=== PATIENT | female | born 1990 | race Caucasian/White ===

== ENCOUNTER 2020-11-01 11:54 | Outpatient (CLI) | payer OTHER, SELFPAY ==
[2020-11-01 12:14] LABS: Hematocrit 34.4 % (37.0-47.0); Hemoglobin 11.1 g/dL (12.0-15.0); Mean Corpuscular HGB Conc 32.3 g/dl (32-36); Mean Corpuscular Hemoglobin 28.5 pg (26-34); Mean Corpuscular Volume 88.4 fl (80-100); Mean Platelet Volume 11.2 fl (7.4-10.4); Platelet Count Result 189 k/mm3 (150-375); Red Blood Count 3.89 M/mm3 (4.2-5.4); Red Cell Distribution Width 13.8 % (11.5-14.5); White Blood Count 10.1 K/mm3 (4.5-10.0)
[2020-11-02 11:52] LABS: Rapid Plasma Reagin Non-Reactive (NonReactive)
== END 2020-11-01 11:55 | disposition home or self-care (01) ==
PROVIDERS: PCP Nurse Practitioner Family; Visit Provider Obstetrics & Gynecology
DX: Z01.818 Encounter for other preprocedural examination (principal)
CPT/HCPCS: 36415; 85027; 86592; 86850; 86900; 86901

== ENCOUNTER 2020-11-02 06:58 | Inpatient (IN) | payer OTHER, SELFPAY ==
--- NOTE | 2020-10-20 15:03 | PC.NURSE ---
VERIFIED WITH OR SCHEDULE AND PATIENT--C/S WITH TUBAL LIGATION ON 11/09/20 AT 1200 PATIENT GIVEN REQUISITION FOR LAB DRAW ON 11/08/20
[2020-11-02] VITALS (64 sets, daily range): BP systolic 91–129; BP diastolic 45–74; PULSE 55–138; RESP 12–16; TEMP 36.2–36.8; O2SAT 96–100; BMI 40.9
[2020-11-02] MEDS: LACTATED RINGERS 1,000 ML 125 ML IV CONT ×2 (07:57→08:31)
--- NOTE | 2020-11-02 08:00 | WPDANESEPPF ---
Anes - Initial Pre Proc Eval Procedure: Operation Date: 11/02/20 09:00 Proposed Procedures p Repeat Section with Bilateral Tubal Ligation - Jasen Patel MD Date/Time: 11/02/20 08:00 Surgeon: Jasen Patel MD Pre Op Diagnosis: Repeat c- section,desires sterilization Patient Data Age: 30 Gender: F Height: 1.78 m Weight: 129.5 kg Last Vital Signs Pulse 75 11/02/20 07:31 BP 124/74 11/02/20 07:31 Allergies Allergy/AdvReac Type Severity Reaction Status Date / Time No Known Allergies Allergy Verified 10/20/20 14:49 Home Medications Medication Instructions Recorded Confirmed Type prenat.vits,azucena,ruz-jveu-qilbd 1 tablet PO DAILY 10/20/20 10/20/20 History [ #2] Patient hx anesthesia problems: none Family hx anesthesia problems: none [facility] [place] Past Medical History Medical History (Updated 11/02/20 @ 08:00 by Zack Rhodes DO) Anemia Family History Family History (Updated 10/20/20 @ 14:51 by Elizabeth Marquez RN) Sibling Hypothyroidism Father A-fib Mother Hypertension Social History Social History Substance use: never Spiritual care concerns: No Anes - Eval Final PreProcedure Day of Procedure 11/02/20 08:00 Patient weight: morbidly obese Heart: regular rate and rhythm Lungs: clear to auscultation and normal air movement Airway: Mallampati scale class II Neurological: alert and oriented Last oral intake: >/= 8 hours ASA classification: III Emergent: no Anesthetic plan: proceed Anesthesia type and monitoring: regional spinal and standard monitoring Informed Consent: The patient's anesthetic plan and its attendant risks and benefits were discussed with the patient/family/POA. Questions were solicited and answers provided to the satisfaction of the patient/family/POA.
--- NOTE | 2020-11-02 09:00 | WPDHPUPDATE1 ---
History and Physical Update Update Date/Time: 11/02/20 09:00 History and Physical has been reviewed, including an updated exam of the patient. There are NO changes in the patient's condition. Risks, benefits, and alternatives have been discussed and questions answered. Patient agrees to proceed with procedure.
--- NOTE | 2020-11-02 09:01 | PM.IMHP ---
H&P: HPI History of Present Illness Date/Time: 11/02/20 09:01 This patient is a 30 y/o mutiparous female at 39 weeks gestation with a previous delivery and unwanted fertility. She has no complaints. She denies contractions, LOF, or vaginal bleeding. She denies YEPEZ, BV, EP. She denies N/V/F/C. She understands that injuries may occur and that injuries may result in hospitalizaton, more surgery, and severe illness. She understands there is a risk for hemorrhage and infection. Chief Complaint: term Review of Systems Constitutional: Constitutional: Reports no additional constitutional complaints, Denies fatigue, Denies headache(s), Denies lethargy and Denies weakness Eyes: Eyes: Reports no additional eye complaints, Denies blurry vision and Denies photophobia ENT: Reports as per HPI, Denies headache(s) and Denies neck pain Cardiovascular: Cardiovascular: Denies chest pain, Denies diaphoresis, Denies leg edema, Denies palpitations and Denies dyspnea Respiratory: Respiratory: Denies hemoptysis, Denies dyspnea and Denies wheezing Gastrointestinal: Gastrointestinal: Denies abdominal pain, Denies melena, Denies bloating, Denies hematochezia, Denies nausea and Denies vomiting Genitourinary: Genitourinary: Reports no additional female genitourinary complaints Musculoskeletal: Musculoskeletal: Denies joint swelling, Denies neck pain, Denies numbness and Denies stiffness Neurologic: Denies Abnormal speech present, Denies confusion, Denies headache(s), Denies numbness and Denies weakness Psychiatric: Psychiatric: Denies anxiety, Denies confusion, Denies depression, Denies homicidal ideation and Denies suicidal ideation Endocrine: Endocrine: Denies fatigue and Denies palpitations Allergic/Immunologic: Allergic/Immunologic: Denies wheezing PMFSH Past Medical History Medical History (Updated 11/02/20 @ 09:09 by Jasen Patel MD) Anemia Family History Family History (Updated 10/20/20 @ 14:51 by Elizabeth Marquez RN) Sibling Hypothyroidism Father A-fib Mother Hypertension Social History Social History Substance use: never Spiritual care concerns: No Meds Home Medications and Allergies Home Medications Medication Instructions Recorded Confirmed Type prenat.vits,azucena,cje-tzhq-kbfym 1 tablet PO DAILY 10/20/20 10/20/20 History [ #2] Allergies Allergy/AdvReac Type Severity Reaction Status Date / Time No Known Allergies Allergy Verified 10/20/20 14:49 Vital Signs Vital Signs - 24 hr 11/02/20 07:31 11/02/20 08:01 11/02/20 08:16 Pulse Rate 75 71 68 Blood Pressure 124/74 114/61 118/70 Exam Const: General: healthy appearing, comfortable and no acute distress; No confusion Orientation/consciousness: No confusion Eyes: Direct Ophthalmoscopy: No photophobia Resp: Auscultation: clear to auscultation bilaterally, no rales, no rhonchi and no wheezes Cardio: Rate: regular rate Heart sounds: no click, no murmurs and no rubs GI: Inspection: non-distended GI Palp: No abdominal tenderness Auscultation: normal bowel sounds Neuro: General: No confusion Speech: No Abnormal speech present Extrem: General: normal to inspection, no pedal edema and no calf tenderness Assessment and Plan Assessment and plan (1) Previous section: Code(s): Z98.891 - History of uterine scar from previous surgery Status: Acute (2) Encounter for female sterilization procedure: Code(s): Z30.2 - Encounter for sterilization Status: Acute (3) Term : Code(s): Z34.90 - Encounter for supervision of normal , unspecified, unspecified trimester Status: Acute Assessment and Plan: This patient is a 30 year old female, multip. at 39 weeks, previous , unwanted fertility. To proceed with repeat and bilateral tubal ligation.. She understands the risk, benefits, and alternatives. She has completed the informed
--- NOTE | 2020-11-02 09:27 | LDADM ---
This patient, Polly Nolan, was admitted to Labor/Delivery/Recovery 118 on 11/02/20 at 06:58. Plans for section, pain management and were discussed with patient. Patient/family oriented to hospital policies and general routines including ID bracelet, bed and alarms, visiting hours, pain management, procedures, bathroom and other care routines, personal items, smoking policy, room service/diet and guest tray routines, security routines, and visiting hours. Patient/Family are encouraged to report perceived risks to care and to ask questions if they do not understand what they are told or what they should do. See OBIX for further documentation.
[2020-11-02] MEDS: KETOROLAC 30 MG/ML VIAL (*BKC) IV PUSH ×3 (10:30→23:37)
--- NOTE | 2020-11-02 10:40 | W.PM.PROC2 ---
Procedure Note - Detailed Date of Procedure 11/02/20 Pre-op Diagnosis Repeat c- section,desires sterilization Post-op Diagnosis same Procedure Performed Low-transverse section Surgeon Jasen Patel MD Anesthesia spinal Indications term gestation, previous , unwanted fertility Findings Normal gestational maternal anatomy, average size infant, normal Apgars. Description of Procedure The patient was taken the operating room. She was prepped and draped in dorsal supine position with a leftward tilt. This was done after spinal anesthetic was applied. A low-transverse skin incision was made and carried down till of the fascia with the knife. The fascial incision was made with the knife. The fascial incision was extended laterally with Paul scissors. The fascia was tented upward superiorly and inferiorly the rectus muscles were dissected off bluntly. The rectus muscles were the midline. The preperitoneal fat and peritoneum were dissected open bluntly at the superior aspect of the rectus muscles. The peritoneal incision was extended superior and inferior with good position of bladder. The uterine incision was made with a scalpel down to the level of the amniotic cavity. The amniotic cavity was entered bluntly. The was delivered. The cord was clamped and cut and the infant was handed off to waiting pediatric staff. Cord bloods were obtained. The placenta was removed manually. The uterus was exteriorized. The uterus was cleared of all clots, debris and membranes. The uterus was closed in 0 Vicryl running lock fashion. An imbricating over a was placed along the incision line as well. the right fallopian tube was grasped in the ampullary region with a Sylvie. The mesosalpinx was cauterized and a window was created in the same area adjacent to the tube. The proximal distal ends of the isolated were ligated with 0 Vicryl. The ligated segment was transected and. The cut ends of the tube were cauterized. The contralateral tube was ligated in the same fashion The uterus was returned to the abdomen. The gutters were cleared of all clots and debris. The fascia was closed with 0 Vicryl running fashion. The subcutaneous tissue was irrigated pinpoint bleeders were cauterized. The skin was closed with subcuticular absorbable jaylan. The skin incision line was covered with glue. The patient tolerated the procedure well. She has taken recovery room in stable condition. Sponge lap and needle counts were correct x2. Estimated Blood Loss 550 Complications No immediate complications Condition stable Disposition PACU
[2020-11-02] MEDS: OXYTOCIN 30 UNITS/NS 500 ML 30 UNITS/500 ML BAG 125 UNITS IV CONT (11:41)
--- NOTE | 2020-11-02 12:55 | PC.NURSE ---
Patient transferred to post room #287 via stretcher. Support person present. Oriented to unit, room, information board, rooming in, admission packet and security measures. Patient verbalizes understanding.
[2020-11-02] MEDS: DEXTROSE 5%/0.45% SOD CHL 1,000 ML 125 ML IV CONT (16:04)
[2020-11-02] MEDS: HYDROcodone/acetaminophen (*CRX) 5-325 MG TABLET 1 TAB PO (18:54)
[2020-11-03 05:00] VITALS: BP 97/54; PULSE 79; RESP 16; TEMP 36.8; O2SAT 96
[2020-11-03] MEDS: HYDROcodone/acetaminophen (*CRX) 10-325 MG TABLET 1 TAB PO ×4 (05:18→20:18)
[2020-11-03 05:43] LABS: Basophils Percent Auto 0.2 % (0.2-1.2); Eosinophils Absolute Auto 0.1 K/mm3 (0-0.3); Eosinophils Percent Auto 0.5 % (0-4.4); Hematocrit 29.2 % (37.0-47.0); Hemoglobin 9.3 g/dL (12.0-15.0); Immature Granulocyte Absolute 0.09 K/mm3 (0.00-0.031); Immature Granulocyte Percent A 0.7 % (0-0.5); Lymphocytes Absolute Auto 1.45 K/mm3 (0.9-3.2); Mean Corpuscular HGB Conc 31.8 g/dl (32-36); Mean Corpuscular Hemoglobin 28.6 pg (26-34); Mean Corpuscular Volume 89.8 fl (80-100); Mean Platelet Volume 11.4 fl (7.4-10.4); Monocytes Percent Auto 7.6 % (2.6-8.5); Neutrophils Absolute Auto 10.5 K/mm3 (1.3-6.7); Platelet Count Result 177 k/mm3 (150-375); Red Blood Count 3.25 M/mm3 (4.2-5.4); Red Cell Distribution Width 13.7 % (11.5-14.5); White Blood Count 13.2 K/mm3 (4.5-10.0)
--- NOTE | 2020-11-03 07:25 | WPDANLDPN2 ---
Anes-Prog Note L&D Date/Time: 11/03/20 07:25 Comfortable throughout: section Neuraxial method: spinal Epidural/Spinal procedure site: clean & non-tender Neuro status: Neuro function grossly intact. Cardiovascular status: normal Respiratory status: normal Airway patency: baseline Mental status: baseline Post-Op hydration status: normal Vital Signs: Last Vital Signs Temp 36.8 C 11/03/20 05:00 Pulse 79 11/03/20 05:00 Resp 16 11/03/20 05:00 BP 97/54 L 11/03/20 05:00 Pulse Ox 96 11/03/20 05:00 Pain score (VAS): 05/09 I/O: Intake & Output 11/02/20 11/02/20 11/03/20 15:59 23:59 07:59 Intake Total 2100 1420 600 Output Total 898 1700 950 Balance 1202 280 -536 Post-procedural complaints: none Patient feedback: Patient satisfied with anesthetic care.
--- NOTE | 2020-11-03 07:26 | WPDANLDNPN2 ---
Anes-Prog Note L&D-Neuraxial Date/Time: 11/03/20 07:26 Neuraxial medications: intrathecal PF morphine Opiod-related complaints: none Patient feedback: Patient satisfied with post-operative pain management.
--- NOTE | 2020-11-03 08:17 | P.PNOB_ITS ---
OB - PN: Subj Subjective Date/time seen: 11/03/20 08:17 Patient comments: no complaints, pain well controlled, tolerating diet and flatus present OB - PN: Obj Data Labs CBC & Chem 7: 11/03/20 05:16 Labs: Laboratory Results - last 24 hr 11/03/20 05:16 WBC 13.2 H RBC 3.25 L Hgb 9.3 L Hct 29.2 L MCV 89.8 MCH 28.6 MCHC 31.8 L RDW 13.7 Plt Count 177 MPV 11.4 H Immature Gran % (Auto) 0.7 H Neut % (Auto) 80.0 H Lymph % (Auto) 11.0 L [place] % (Auto) 7.6 Eos % (Auto) 0.5 Baso % (Auto) 0.2 Lymph # (Auto) 1.45 [place] # (Auto) 1.0 H Eos # (Auto) 0.1 Baso # (Auto) 0.0 Abs Immat Gran (auto) 0.09 H Absolute Neuts (auto) 10.5 H Absolute Nucleated RBC 0.0 Nucleated RBC % 0.0 OB - PN A/P Plan day: 1 Comments: Post Op LTCS - no problems, routine recovery Time Spent With Patient Time: Total time spent is greater than 50% in coordination of care (as documented) at patient's floor/unit and/or counseling patient: Exam Const: General: cooperative, healthy appearing, comfortable and no acute distress Resp: Auscultation: no crackles, no rales, no rhonchi and no wheezes Cardio: Rhythm: regular rhythm Heart sounds: no click and no murmurs GI: Inspection: non-distended Auscultation: normal bowel sounds Extrem: General: normal to inspection, no pedal edema and no calf tenderness
[2020-11-03 08:30] VITALS: PULSE 78; RESP 16; O2SAT 98
[2020-11-03 08:55] VITALS: BP 110/62; PULSE 78; RESP 16; TEMP 36.6; O2SAT 98
[2020-11-03] MEDS: IBUPROFEN 600 MG TABLET PO ×2 (10:13→16:14)
[2020-11-03] MEDS: DOCUSATE SODIUM 100 MG CAPSULE PO ×2 (10:14→17:08)
[2020-11-03] MEDS: POLYSACCHARIDE IRON COMPLEX 150 MG CAPSULE PO ×2 (10:14→17:08)
[2020-11-03 20:05] VITALS: BP 125/65; PULSE 94; RESP 15; TEMP 36.6; O2SAT 98
[2020-11-04] MEDS: IBUPROFEN 600 MG TABLET PO ×2 (05:00→14:35)
[2020-11-04] MEDS: HYDROcodone/acetaminophen (*CRX) 10-325 MG TABLET 1 TAB PO (05:01)
--- NOTE | 2020-11-04 07:50 | PM.OBPNVD ---
OB - PN: Subj Subjective Date/time seen: 11/04/20 07:50 Patient comments: no complaints, pain well controlled, tolerating diet and flatus present baby status: doing well OB - PN: Obj Data Labs CBC & Chem 7: 11/03/20 05:16 OB - PN A/P Plan day: 2 Plan: routine care and discharge home (Follow up in 1 week) Time Spent With Patient Time: Total time spent is greater than 50% in coordination of care (as documented) at patient's floor/unit and/or counseling patient: Time with patient: less than 15 minutes Review of Systems Review of Systems: All systems reviewed & are unremarkable except as noted in HPI and below Exam Narrative: Exam Narrative: Fundus firm. Vaginal flow controlled. Incision dry and intact. Negative homans. No redness, warmth, or pain of lower ext. Const: General: comfortable Chest: Breast/axilla inspection: normal inspection of the breasts Resp: Effort & Inspection: normal respiratory effort Auscultation: clear to auscultation bilaterally Cardio: Rate: regular rate GI: GI Palp: Yes Soft to palpation Psych: Appearance: grossly normal Affect: normal affect Attitude: cooperative Thought content: Yes Normal thought content present Judgement: Good judgement present (Psych)
[2020-11-04] MEDS: DOCUSATE SODIUM 100 MG CAPSULE PO (08:07)
[2020-11-04] MEDS: POLYSACCHARIDE IRON COMPLEX 150 MG CAPSULE PO (08:07)
[2020-11-04] MEDS: TETANUS,DIPHTHERIA,AC PERTUSSIS ADULT (0.5 ML) BOOSTRIX IM (08:08)
[2020-11-04 08:50] VITALS: BP 122/71; PULSE 84; RESP 16; TEMP 36.9; O2SAT 98
[2020-11-04] MEDS: HYDROcodone/acetaminophen (*CRX) 5-325 MG TABLET 1 TAB PO ×2 (08:51→14:35)
--- NOTE | 2020-11-04 14:07 | PC.NURSE ---
Patient viewed the discharge video Mother & Baby Care, The First Two Weeks . Patient was given the opportunity and encouraged to ask questions. Patient verbalized understanding of information shared and has been given the mother/baby guide for home reference.
[2020-11-05 07:49] VITALS: BP 113/66; PULSE 90; RESP 20; TEMP 36.6; O2SAT 98
--- NOTE | 2020-11-25 08:11 | PM.OBDSVD ---
DS: Admitting Diagnosis Admitting Diagnosis with tubal ligation OB - DS: Summary OB Procedures : None OB Procedures Intrapartum: and Tubal ligation OB Procedures: : P.P. tubal ligation Peripartum Data Procedures: Procedures Operation Date: 11/02/20 09:00 Actual Procedure Side Surgeon p Repeat Section with Bilateral Tubal Ligation Not Applicable Jasen Patel MD Time Spent with Patient Time attestation: Total time spent providing and/or coordinating discharge services: DS: Data Data Completed and Pending Completed studies during hospitalization: Pending at discharge 11/02/20 10:21 Surgical [PTH] Routine Discharge Plan Discharge Attending physician on discharge: Jasen Patel Consulting providers: Zack Rhodes Discharging Clinician: Jasen Patel Patient Disposition: Home, Self-Care Activity: no driving and pelvic rest Diet: as tolerated Discharge Instructions: Education: Mom and Baby Guide Given to: Mother Follow-Up: Call your delivering provider's office for an appointment to be seen in: call for appointment Mom and baby should come to the [facility] for the follow-up appointment. Appointment Date/Time: November 05, 2020 at 8:00 am What to expect at your follow-up visit: Physical Assessment Call [phone] if you are unable to keep your appointment time. BREAST CARE: * Wear a snug supportive bra. * For engorgement discomfort: * Wear loose clothing Bottle Feeding: * May apply ice packs ABDOMINAL INCISION: (if applicable) * Allow incision to air dry * Do NOT use lotions for powders on your incision * When showering, allow soap and water to run over the incision, but do not wash incision EPISIOTOMY/PERINEAL CARE: * Until bleeding stops, use your cedric bottle after urinating * Change your pad frequently throughout the day * No tub baths until seen by your physician - You may shower ACTIVITY: * Rest as much as possible. * Do not exercise or lift anything heavier than your baby (such as laundry or other children.) * Avoid stairs or driving as much as possible. * Do not put anything into the vagina. No douching, tampons, or sexual activity until seen by physician. NOTIFY PHYSICIAN IF YOU HAVE ANY QUESTIONS OR IF ANY OF THE FOLLOWING SYMPTOMS OCCUR: * If your incision becomes red, swollen, or more painful than what you have experienced in the hospital. * If your vaginal bleeding becomes foul smelling. * If your vaginal bleeding becomes more heavy than a period or if your bleeding changes from pink to bright red. However, you may pass an occasional walnut-sized clot once or twice for the first week . * If you experience a sharp, shooting pain in you calves. * If you discover a hard, reddened area on your breast or if you experience flu-like symptoms. DIET: * Eat regular, well-balanced meals. * Drink plenty of fluids daily. If , drink to thirst. Stand Alone Forms: General Discharge Information Follow-up/Referrals: Jasen Patel MD [Physician] - Discharge Medications: New ibuprofen 600 mg Tablet 600 mg PO Q6H PRN (Reason: Cramping) Qty: 20 RF: 0 hydrocodone-acetaminophen 5-325 mg tablet 1 tablet PO Q6H PRN (Reason: pain) Qty: 20 RF: 0 Continued prenat.vits,azucena,ele-onup-yqtnu Tablet 1 tablet PO DAILY RF: 0 ferrous sulfate [Iron (ferrous sulfate)] 325 mg (65 mg iron) Tablet 325 mg PO DAILY RF: 0 Date of admission: 11/02/20 06:58 Primary Care Provider: Christian,Erin Alves Admitting Provider: Jasen Patel Attending physician on admission: Jasen Patel Condition: Stable
== END 2020-11-04 15:00 | disposition home or self-care (01) | DRG 785 ==
LOC: ANHLDR 07:01 → ANHOB2 13:00
PROVIDERS: Admitting Provider Obstetrics & Gynecology; PCP Nurse Practitioner Family; Visit Provider Obstetrics & Gynecology
PROC: 10D00Z1 Extraction of Products of Conception, Low, Open Approach (ICD-10-PCS; CPT 59514; principal; 2020-11-02 09:00)
DX: O34.211 Maternal care for low transverse scar from previous cesarean delivery (principal); Z37.0 Single live birth; Z3A.39 39 weeks gestation of pregnancy; Z30.2 Encounter for sterilization; O99.02 Anemia complicating childbirth; D64.9 Anemia, unspecified; O99.214 Obesity complicating childbirth; E66.01 Morbid (severe) obesity due to excess calories
CPT/HCPCS: 36415; 85025; 85027; 86592; 86850; 86900; 86901; 88302; 90715; A9270; J0131; J1885; J2274; J2370; J2405; J2590; J7120

== ENCOUNTER 2022-03-14 08:24 | Emergency (ER) | payer OTHER, SELFPAY ==
--- NOTE | 2022-03-14 08:28 | ED.URI ---
HPI - URI/Sore Throat General Chief Complaint: Upper Respiratory Infection Stated Complaint: FEVER/SORE THROAT Time Seen by Provider: 03/14/22 08:28 Source: patient and RN notes reviewed History of Present Illness HPI Narrative: Patient is a 32-year-old female who presents to the Urgent Care with complaints of fever, sore throat and congestion since Sunday. Patient states that she has been taking DayQuil and NyQuil for her symptoms. Denies any nausea or vomiting. No other acute complaints. No acute distress noted. Patient aware of the plan of care. Some parts of this dictation were generated by voice recognition software and may contain typographical and/or grammatical inaccuracies. Related Data Allergies Allergy/AdvReac Type Severity Reaction Status Date / Time No Known Allergies Allergy Verified 10/20/20 14:49 Review of Systems Review of Systems: CONSTITUTIONAL: Reports of fever fatigue EYES: Denies visual changes, redness, or discharge. ENT: Reports of nasal congestion, sore throat CARDIOVASCULAR: Denies chest pain, palpitations, or edema. RESPIRATORY: Denies cough or dyspnea. GASTROINTESTINAL: Denies abdominal pain, nausea, vomiting, or diarrhea. GENITOURINARY: Denies dysuria or hematuria. SKIN: Denies rash or itching. MUSCULOSKELETAL: Denies back pain, joint pain, or myalgia. NEUROLOGIC: Denies headache, numbness, or weakness. All other systems reviewed are negative, except as documented in HPI. [facility] Past Medical History Medical History (Updated 03/14/22 @ 09:08 by GITA Estevez) Anemia Family History Family History (Updated 10/20/20 @ 14:51 by Elizabeth Marquez RN) Sibling Hypothyroidism Father A-fib Mother Hypertension Social History Social History Smoking status: Former smoker Smoking end date: 10/28/17 Substance use: never Spiritual care concerns: No Comments At the time of my signature, I reviewed and agree with the nursing past medical, surgical, social, and family history. There is no relevant family history pertinent to the patient complaint. Exam Narrative: GENERAL: This is a well-nourished, well-developed patient, in no apparent distress. HEAD: normocephalic, atraumatic. EYES: PERRL. Sclera clear/white. Vision is grossly intact. EARS: External ears normal, auditory canals clear and without drainage, TMs normal without perforation. Hearing grossly intact. NOSE: External nose normal with no obvious nasal discharge. Bilateral erythema nares with inflamed tuberosities and clear to yellow rhinorrhea THROAT: Mucous membranes moist. Moderate erythema to the posterior pharynx with moderate bilateral tonsillar edema with exudate and moderate postnasal drainage. Hoarse voice NECK: Neck supple, mild bilateral nontender submandibular lymphadenopathy CARDIOVASCULAR: Regular rate and rhythm without murmurs, gallops, or rubs. RESPIRATORY: Clear to auscultation. Breath sounds equal bilaterally. No wheezes, rales, or rhonchi. SKIN: warm, intact with no suspicious lesions or rash, good texture and turgor. NEURO: awake, alert, and oriented to person, place and time. There were no obvious focal neurologic abnormalities. EXTREMITIES: No clubbing, cyanosis, or edema. Course Course Level of Care: Express Care Visit Vital Signs Vital signs: Vital Signs Temperature 99.4 F 03/14/22 08:32 Pulse Rate 98 03/14/22 08:32 Respiratory Rate 16 03/14/22 08:32 Blood Pressure 119/78 03/14/22 08:32 Pulse Oximetry 98 03/14/22 08:32 Oxygen Delivery Room Air 03/14/22 08:32 Temperature 99.4 F 03/14/22 08:32 Pulse Rate 98 03/14/22 08:32 Respiratory Rate 16 03/14/22 08:32 Blood Pressure 119/78 03/14/22 08:32 Pulse Oximetry 98 03/14/22 08:32 Oxygen Delivery Room Air 03/14/22 08:32 Reviewed MDM - URI/Sore Throat MDM Narrative Medical decision making narrative: Reviewed lab results with the patient. She is aware that flu and strep swab was negati
[2022-03-14 08:32] VITALS: BP 119/78; PULSE 98; RESP 16; TEMP 37.4; O2SAT 98
== END 2022-03-14 09:21 | disposition home or self-care (01) ==
PROVIDERS: Emergency Provider Nurse Practitioner Family
DX: J03.90 Acute tonsillitis, unspecified (principal); Z87.891 Personal history of nicotine dependence
CPT/HCPCS: 87081; 87804; 87880; 99213; G0463

== ENCOUNTER 2023-01-18 01:25 | Day surgery (SDC) | payer OTHER, SELFPAY ==
[2023-01-11 10:45] VITALS: BMI 38.7
--- NOTE | 2023-01-11 10:49 | PC.NURSE ---
Report to the Outpatient Waiting Room, entrance under the green pavilion located off [facility], at time 1000 on date 01/18/23. Planned Procedure Time: 1200. Time changes happen often and if your time is changed the preop area will call you the afternoon before. - You and your visitor will be asked to self-screen and do not enter if you have any COVID symptoms. - A mask is optional within the hospital at this time. Patients may ONLY have clear liquids WEDNESDAY 01/17. - No food OR DRINK from midnight until time of surgery Take the following medications with a SIP of water the morning of surgery: BUSPIRONE DO NOT STOP ANY OF YOUR OTHER PRESCRIPTION MEDICATIONS PRIOR TO SURGERY ?EXCEPT THE FOLLOWING Medications to discontinue per physician: N/A Date to take last dose: N/A PER DR. BARKER - FLEETS ENEMA NIGHT BEFORE AND MORNING OF SURGERY, DULCOLAX 5MG NIGHT BEFORE SURGERY Please no make-up, nail guatemalan, hairspray, perfume, deodorant, or body powder the day of surgery. No jewelry (including any body piercings) or valuables the day of surgery, leave them at home. Please take a shower or bath the night before, or the morning of, surgery with an antibacterial soap. Wear comfortable, loose fitting clothing. - Jewelry must be removed prior to entering the operating room. Rings and piercings that are not removed may be cut off. - The hospital will not accept responsibility for valuables. - Please leave all valuables, including medications, at home the day of surgery. If you are going home after surgery, a licensed tow motor driver must drive you home. - NO public transportation without another adult if you receive anesthesia. - We recommend that an adult stay with you for 24 hours following discharge. - We also recommend that you do not drive, make important decision, drink alcoholic beverages, or take any drugs that were not prescribed by your health care provider for at least 24 hours after your discharge time. Follow any additional instructions given to you from your surgeon. If you or anyone in your household have experienced Covid symptoms in the past week, please notify your surgeon or the nurse liaison at the phone number below for possible testing. Telephone instructions given to PT - STEFANIE FELIX and asked if any additional questions and then verbalized understanding. Patient advised to call surgeon office or pre surgery nurse liaison [phone] if any additional questions.
[2023-01-18] VITALS (7 sets, daily range): BP systolic 103–125; BP diastolic 62–76; PULSE 72–113; RESP 12–18; TEMP 36.2–36.6; O2SAT 99–100
[2023-01-18] MEDS: LACTATED RINGERS 1,000 ML 30 ML IV CONT ×2 (09:45→12:45)
--- NOTE | 2023-01-18 10:45 | P.PNAN_ITS ---
Anes - Initial Pre Proc Eval Procedure: Operation Date: 01/18/23 12:00 Proposed Procedures p Lateral Internal Sphincterotomy - Cody Feldman MD Date/Time: 01/18/23 10:45 Surgeon: Cody Feldman MD Pre Op Diagnosis: chronic anal fissure Patient Data Age: 32 Gender: F Height: 1.78 m Weight: 125.6 kg Last Vital Signs Temp 36.2 C L 01/18/23 09:19 Pulse 78 01/18/23 09:19 Resp 18 01/18/23 09:19 BP 122/71 01/18/23 09:19 Pulse Ox 99 01/18/23 09:19 O2 Del Method Room Air 01/18/23 09:19 Allergies Allergy/AdvReac Type Severity Reaction Status Date / Time No Known Allergies Allergy Verified 01/11/23 10:44 Home Medications Medication Instructions Recorded Confirmed Type famotidine 20 mg tablet 20 mg PO DAILY 04/11/22 01/11/23 History buspirone 5 mg tablet 5 mg PO BID #60 tabs 09/08/22 01/11/23 Rx Patient hx anesthesia problems: none Family hx anesthesia problems: none Results Review: All pre-operative results and documents have been reviewed as part of the pre- operative evaluation. [facility] Past Medical History Medical History Anemia Anxiety Depression GERD (gastroesophageal reflux disease) Surgical History Surgical History Previous section x 2 Family History Family History Sibling Hypothyroidism Father A-fib Mother Hypertension Grandparent Acute myocardial infarction, Onset Age: 50 Social History Social History Smoking packs per day: 0.5 Smoking cigarettes per day: 10.0 Years smoked: 10 Smoking pack-years: 5.00 Smoking status: Former smoker Tobacco type: cigarettes Smoking end date: 04/30/16 Alcohol intake: never Substance use: never Substance use type: does not use Living arrangements: with family Additional living arrangements comments: BOYFRIEND & CHILDREN Occupation/Education: occupation Gender identity (if verbalized by the patient): Female Sexual Orientation (if Verbalized by the Patient): Straight or Heterosexual Spiritual care concerns: No Anes - Eval Final PreProcedure Day of Procedure 01/18/23 10:45 Patient weight: obese Heart: regular rate and rhythm Lungs: clear to auscultation Airway: Mallampati scale class II Neurological: alert and oriented Last oral intake: >/= 8 hours ASA classification: III Emergent: no Anesthetic plan: proceed Anesthesia type and monitoring: general ETT and standard monitoring Results Review: All pre-operative results and documents have been reviewed as part of the pre- operative evaluation. Informed Consent: The patient's anesthetic plan and its attendant risks and benefits were discussed with the patient/family/POA. Questions were solicited and answers provided to the satisfaction of the patient/family/POA.
[2023-01-18] MEDS: KETOROLAC 15 MG/ML VIAL (*BKC) IV PUSH (11:25)
[2023-01-18] MEDS: ACETAMINOPHEN 500 MG TABLET 1000 MG PO (11:25)
--- NOTE | 2023-01-18 11:43 | WPDHPUPDATE1 ---
History and Physical Update Update Date/Time: 01/18/23 11:43 History and Physical has been reviewed, including an updated exam of the patient. There are NO changes in the patient's condition. Risks, benefits, and alternatives have been discussed and questions answered. Patient agrees to proceed with procedure.
[2023-01-18] MEDS: ceFAZolin 3 GM/D5W 100 ML 100 ML IVPB (11:53)
[2023-01-18] MEDS: BUPIVACAINE/EPINEPHRINE 0.5% 30 ML VIAL 60 ML INFILTRATE (12:30)
--- NOTE | 2023-01-18 12:57 | W.PM.PROC2 ---
Procedure Note - Detailed Date of Procedure 01/18/23 Pre-op Diagnosis chronic anal fissure Post-op Diagnosis Other (Rectal inflammation, internal and external hemorrhoids) Procedure Performed Excision single complex right posterior internal and external hemorrhoid, rectal mucosal biopsy left lateral position. Surgeon Cody Feldman MD Applications Processor Debar Harry [facility] Anesthesia General and Local (0.5% Marcaine with epinephrine) Indications Patient has been having chronic persistent rectal pain ever since childbirth 2 years ago. The pain is worse with bowel movement. She does have prominent circumferential hemorrhoids but seemed to be most tender in the posterior midline although I could not definitely see a fissure. Her sphincter tone in the office visit did appear to be increased. She is taken to surgery now for sphincterotomy with diagnosis of anal fissure. Findings There was no anal fissure. Anal sphincter tone did not seem to be abnormally high or spastic. She did have reddened and inflamed distal rectal or anal canal mucosa including internal hemorrhoids and other areas of the distal rectal mucosa. She has multiple internal and external hemorrhoids. Description of Procedure Patient was taken to surgery and induced into general anesthesia. She was then turned into prone del-knife position. Buttocks were taped apart. Prep and drape was carried out. Prior to administering any local anesthetic, I used Jairo-Dontrell anoscope then carefully examine the anal canal and distal rectum. Findings were as above. There was evidence of chronic inflammation but no anal fissure and anal sphincter tone seemed essentially normal. For that reason, I excised a right posterior quadrant internal and external hemorrhoid that seemed particularly inflamed at the internal hemorrhoid. There was also some severely inflamed mucosa just adjacent to this original excision and I also excised that and sent it with the hemorrhoid specimen. The wound was then closed with running locking 3-0 chromic suture. I then found an area in the left lateral position that appeared to have very inflamed distal rectal mucosa. I excised this mucosa and sent it as a separate specimen. The area was made hemostatic with the cautery. We dressed the rectum with Xeroform gauze fluffs and tape. Patient was returned to a supine position, awakened, and extubated. She was taken to recovery in good condition. Sponge and needle counts were correct x2. Estimated Blood Loss -5 Drains No Packing No Pathology Yes (Right posterior complex internal and external hemorrhoids with additional internal hemorrhoid tissue, left lateral distal mucosal biopsy.) Complications No immediate complications Condition Stable Disposition PACU [facility] Billing Surgery - Charge Forward: Surgery Billing (Excision single complex internal and external hemorrhoids, distal rectal mucosal biopsy)
== END 2023-01-18 14:52 | disposition home or self-care (01) ==
PROVIDERS: PCP Family Medicine; Visit Provider Surgery
PROC: (CPT 46255; principal; 2023-01-18 12:00)
DX: K64.8 Other hemorrhoids (principal); K64.4 Residual hemorrhoidal skin tags; K62.89 Other specified diseases of anus and rectum; K21.9 Gastro-esophageal reflux disease without esophagitis; F41.9 Anxiety disorder, unspecified; F32.A Depression, unspecified; Z87.891 Personal history of nicotine dependence; E66.9 Obesity, unspecified; Z68.39 Body mass index [BMI] 39.0-39.9, adult
CPT/HCPCS: 46255; 45100; 88304; 88305; A9270; J0330; J0690; J1100; J1170; J1885; J2250; J2405; J2704; J3010; J7120

== ENCOUNTER 2023-02-19 03:15 | Day surgery (SDC) | payer OTHER, SELFPAY ==
[2023-02-08 08:24] VITALS: BMI 38.7
--- NOTE | 2023-02-19 11:15 | PM.HPGS ---
History of Present Illness History of Present Illness Consent: Risks, benefits, and alternatives have been discussed and questions answered. Patient agrees to proceed with procedure. Chief complaint: Rectal pain,Ulcerative procitis Narrative: Polly Nolan is a 33 year old female referred for colonoscopy due to persistent rectal discomfort after hemorrhoidectomy. She was noted at the time of that procedure to have inflammation of the rectum consistent with proctitis. She has no prior history of inflammatory bowel disease. Review of Systems Review of Systems: All systems reviewed & are unremarkable except as noted in HPI and below PMFSH Past Medical History Medical History Anemia Anxiety Anxiety Depression GERD (gastroesophageal reflux disease) GERD (gastroesophageal reflux disease) Surgical History Surgical History Hx of section 2020 Previous section x 2 Family History Family History Sibling Hypothyroidism Father A-fib Mother Hypertension Grandparent Acute myocardial infarction, Onset Age: 50 Mother Hypertension Other Cancer Heart disease Social History Social History Smoking packs per day: 0.5 Smoking cigarettes per day: 10.0 Years smoked: 10 Smoking pack-years: 5.00 Smoking status: Former smoker Tobacco type: cigarettes Smoking end date: 04/30/16 Alcohol intake: never Substance use: never Substance use type: does not use Living arrangements: with family Additional living arrangements comments: BOYFRIEND & CHILDREN Occupation/Education: occupation 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 Gender identity (if verbalized by the patient): Female Sexual Orientation (if Verbalized by the Patient): Straight or Heterosexual Spiritual care concerns: No Meds Home Medications and Allergies Home Medications Medication Instructions Recorded Confirmed Type buspirone 5 mg tablet 5 mg PO BID 01/02/23 02/08/23 History famotidine 20 mg tablet 20 mg PO DAILY 01/02/23 02/08/23 History mesalamine 1,000 mg rectal 1 g RECTAL QHS 4 weeks #30 ea 01/23/23 02/08/23 Rx suppository acetaminophen 500 mg tablet 500 mg PO QID PRN Pain 02/08/23 02/08/23 History ibuprofen 600 mg tablet 600 mg PO QID PRN Pain 02/08/23 02/08/23 History Allergies Allergy/AdvReac Type Severity Reaction Status Date / Time No Known Allergies Allergy Verified 02/19/23 12:20 Exam Const: General: alert Orientation/consciousness: patient oriented x3 Resp: Auscultation: clear to auscultation bilaterally Cardio: Rhythm: regular rhythm GI: GI Palp: Yes Soft to palpation and No Tenderness to palpation present (GI) Neuro: General: patient oriented x3 Assessment and Plan Assessment and plan (1) Proctitis: Code(s): K62.89 - Other specified diseases of anus and rectum Status: Acute Assessment and Plan: Colonoscopy with possible biopsy or polypectomy or cautery or injection of substances.
[2023-02-19 12:20] VITALS: BP 107/68; PULSE 76; RESP 18; TEMP 36.3; O2SAT 100
[2023-02-19] MEDS: LACTATED RINGERS 1,000 ML 150 ML IV CONT (12:32)
--- NOTE | 2023-02-19 12:41 | WPDANESEPPF ---
Anes - Initial Pre Proc Eval Procedure: Operation Date: 02/19/23 13:30 Proposed Procedures p Colonoscopy - Dong Merino MD Date/Time: 02/19/23 12:41 Surgeon: Dong Merino MD Pre Op Diagnosis: Rectal pain,Ulcerative procitis Patient Data Age: 33 Gender: F Height: 1.78 m Weight: 124 kg Last Vital Signs Temp 97.3 F L 02/19/23 12:20 Pulse 76 02/19/23 12:20 Resp 18 02/19/23 12:20 BP 107/68 02/19/23 12:20 Pulse Ox 100 02/19/23 12:20 O2 Del Method Room Air 02/19/23 12:20 Allergies Allergy/AdvReac Type Severity Reaction Status Date / Time No Known Allergies Allergy Verified 02/19/23 12:20 Home Medications Medication Instructions Recorded Confirmed Type buspirone 5 mg tablet 5 mg PO BID 01/02/23 02/08/23 History famotidine 20 mg tablet 20 mg PO DAILY 01/02/23 02/08/23 History mesalamine 1,000 mg rectal 1 g RECTAL QHS 4 weeks #30 ea 01/23/23 02/08/23 Rx suppository acetaminophen 500 mg tablet 500 mg PO QID PRN Pain 02/08/23 02/08/23 History ibuprofen 600 mg tablet 600 mg PO QID PRN Pain 02/08/23 02/08/23 History Patient hx anesthesia problems: none Family hx anesthesia problems: none Results Review: All pre-operative results and documents have been reviewed as part of the pre-operative evaluation. [facility] Past Medical History Medical History Anemia Anxiety Depression GERD (gastroesophageal reflux disease) Surgical History Surgical History Previous section x 2 Family History Family History Sibling Hypothyroidism Father A-fib Mother Hypertension Grandparent Acute myocardial infarction, Onset Age: 50 Social History Social History (System 02/05/23 @ 12:10 by Nicci Bell) Smoking packs per day: 0.5 Smoking cigarettes per day: 10.0 Years smoked: 10 Smoking pack-years: 5.00 Smoking status: Former smoker Tobacco type: cigarettes Smoking end date: 04/30/16 Alcohol intake: never Substance use: never Substance use type: does not use Living arrangements: with family Additional living arrangements comments: BOYFRIEND & CHILDREN Occupation/Education: occupation 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 Gender identity (if verbalized by the patient): Female Sexual Orientation (if Verbalized by the Patient): Straight or Heterosexual Spiritual care concerns: No Anes - Eval Final PreProcedure Day of Procedure 02/19/23 12:41 Patient weight: normal Heart: regular rate and rhythm Lungs: clear to auscultation Airway: Mallampati scale class II Neurological: alert and oriented Last oral intake: >/= 8 hours ASA classification: III Emergent: no Anesthetic plan: proceed Anesthesia type and monitoring: general GIVS and standard monitoring Results Review: All pre-operative results and documents have been reviewed as part of the pre-operative evaluation. Informed Consent: The patient's anesthetic plan and its attendant risks and benefits were discussed with the patient/family/POA. Questions were solicited and answers provided to the satisfaction of the patient/family/POA.
[2023-02-19 13:16] VITALS: BP 114/69; PULSE 84; RESP 20; O2SAT 100
[2023-02-19 13:26] VITALS: BP 123/59; PULSE 68; RESP 20; O2SAT 100
[2023-02-19 13:36] VITALS: BP 126/67; PULSE 67; RESP 20; O2SAT 100
== END 2023-02-19 13:57 | disposition home or self-care (01) ==
PROVIDERS: PCP Family Medicine; Visit Provider Internal Medicine Gastroenterology
PROC: 0DJD8ZZ Inspection of Lower Intestinal Tract, Via Natural or Artificial Opening Endoscopic (ICD-10-PCS; CPT 45378; principal; 2023-02-19 13:30)
DX: K62.89 Other specified diseases of anus and rectum (principal); K64.8 Other hemorrhoids; D64.9 Anemia, unspecified; F41.9 Anxiety disorder, unspecified; F32.A Depression, unspecified; K21.9 Gastro-esophageal reflux disease without esophagitis; Z87.891 Personal history of nicotine dependence
CPT/HCPCS: 45380; 88305; J2704; J7120

== ENCOUNTER 2023-03-13 11:20 | Outpatient (CLI) | payer OTHER, SELFPAY ==
--- NOTE | ~2023-03-13 | XR_ITS ---
Right ankle Technique: AP, oblique, and lateral views were obtained. Clinical History: Pain Findings: No acute fracture or dislocation is seen. Osseous alignment is anatomic. Ankle mortise and other visualized joint spaces are preserved. Soft tissues are otherwise unremarkable. Impression: Unremarkable right ankle. Reviewed, dictated and finalized at location . 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
--- NOTE | ~2023-03-13 | XR_ITS ---
Right foot Technique: AP, oblique, and lateral views were obtained. Clinical History: Pain Findings: No acute fracture or dislocation is seen. Orthopedic screw present at the fifth metatarsal head. Osseous alignment is anatomic. Joint spaces are preserved without erosive or degenerative lee e. Soft tissues are unremarkable. Impression: No acute abnormality. Orthopedic screw at the fifth metatarsal head. Reviewed, dictated and finalized at location . CLERK Impression: No acute abnormality. Orthopedic screw at the fifth metatarsal head.
== END 2023-03-13 11:21 | disposition home or self-care (01) ==
LOC: ANHIMG 11:25
PROVIDERS: PCP Family Medicine; Visit Provider Physician Assistant
DX: S99.911A Unspecified injury of right ankle, initial encounter (principal); Z96.7 Presence of other bone and tendon implants
CPT/HCPCS: 73610; 73630

== ENCOUNTER 2023-03-23 12:34 | Outpatient (CLI) | payer OTHER, SELFPAY ==
[2023-03-23 13:26] LABS: SARS-CoV-2 RNA PCR Negative (Negative)
== END 2023-03-23 12:35 | disposition home or self-care (01) ==
LOC: ANHLAB 12:35
PROVIDERS: PCP Family Medicine; Visit Provider Physician Assistant Medical
DX: R53.83 Other fatigue (principal); J34.89 Other specified disorders of nose and nasal sinuses
CPT/HCPCS: 87635

== ENCOUNTER 2023-04-26 11:09 | Outpatient (CLI) | payer OTHER, SELFPAY ==
[2023-04-26 11:56] LABS: Influenza A QL RT-PCR Negative (Negative); Influenza B QL RT-PCR Negative (Negative); SARS-CoV-2 RNA PCR Negative (Negative)
== END 2023-04-26 11:10 | disposition home or self-care (01) ==
LOC: ANHLAB 11:11
PROVIDERS: PCP Family Medicine; Visit Provider Physician Assistant Medical
DX: R53.83 Other fatigue (principal); R50.9 Fever, unspecified; J02.9 Acute pharyngitis, unspecified; Z20.822 Contact with and (suspected) exposure to COVID-19
CPT/HCPCS: 87636